=== PATIENT | female | born 1970 | race Caucasian/White ===

== ENCOUNTER 2021-02-08 17:38 | Emergency (ER) | payer OTHER ==
[~2021-02-08] VITALS: Ht 162.6 cm; Wt 54.4 kg
[2021-02-08 19:32] LABS: ABSOLUTE NEUTROPHILS 7.9 thou/uL (1.4-8.2); BASOPHILS 0.2 % (0.0-2.0); EOSINOPHILS 0.6 % (0.0-3.0); HEMATOCRIT 41.2 % (37.0-47.0); LYMPHOCYTES 12.9 % (24.0-44.0); MCH 30.3 pg (26.0-34.0); MCV 89.1 fL (80.0-100.0); MONOCYTES 8.4 % (1.0-8.0); PLATELET COUNT 207 thou/uL (150-400); POLYS 77.9 % (36.0-66.0); RBC 4.62 mil/uL (4.20-5.00); RDW 14.5 % (10.5-14.5); WBC 10.2 thou/uL (4.0-11.0)
[2021-02-08 19:59] LABS: CREATININE 0.8 mg/dL (0.6-1.0); POTASSIUM 3.6 mmol/L (3.5-5.1)
[2021-02-08] MEDS ORDERED: KEFLEX500 M1 PO ×2 (22:02→22:07)
[2021-02-08] MEDS ORDERED: BACTRIM DS TAB1 EACH PO ×2 (22:02→22:07)
[2021-02-08 23:23] VITALS: BP 118/72
--- NOTE | 2021-02-12 10:11 | O ---
[facility] [place] [address] [place] [address] OPERATIVE REPORT Name: LORETO DOMINGUEZ Room #: DEP Fabio#: [id number] Admission: 02/08/21 Attend Phys: Discharge: 02/08/21 Date of : 68 Report #: [id number] THIS REPORT FOR: cc: FAM - Family physician unknown FAM - Family physician unknown Lam Pacheco MD ~ DATE OF SERVICE: 02/08/2021 ER PROCEDURE NOTE PREPROCEDURE DIAGNOSIS: Right superficial volar thumb abscess. POSTPROCEDURE DIAGNOSIS: Right superficial volar thumb abscess. PROCEDURE: Incision and drainage, right thumb abscess. SURGEON: Lam Pacheco MD. ANESTHESIA: Digital nerve block performed by myself using 1% lidocaine. ESTIMATED BLOOD LOSS: Minimal. SPECIMENS: Cultures of the abscess were taken and sent. CONDITION POSTPROCEDURE: Stable. INDICATIONS FOR PROCEDURE: The patient is a 50-year-old female who has had increased swelling and development of abscess in her right thumb in flexion crease that has gotten progressively swollen and painful with erythema going up her arm. She did not show any signs of flexor tenosynovitis. She was not interested in being admitted to the hospital for IV antibiotics and surgical drainage and alternatively we offered local I and D in the Emergency Room. She was amenable to this plan. DESCRIPTION OF PROCEDURE: Risks, benefits, alternatives, complications were discussed in detail with the patient including but not limited to risk of the nerve block, risks of continued infection, progression of infection to involve more than ____. An informed consent was obtained from the patient. The right thumb was identified. Timeout was performed. The right thumb was then numbed using a digital nerve block using approximately 7 mL of 1% lidocaine injected into the base of the thumb. After this, the thumb was prepped and draped in sterile fashion. A #15 blade was used to open the abscess in interval oblique fashion. Upon opening of the abscess, there was a 2-3 mL of purulent drainage that was expressed. Cultures of this were taken. This was irrigated with normal saline and dressed with 4 x 4 and Rajiv wrap. The patient tolerated this [facility] [address] [place] [address] OPERATIVE REPORT Name: LORETO DOMINGUEZ JACVishal Room #: DEP Fabio#: [id number] Admission: 02/08/21 Attend Phys: Discharge: 02/08/21 Date of : 68 Report #: [id number] procedure well and will be discharged home on oral antibiotics. It has been instructed to her to perform soapy water washes 3 times a day and secondary healing. <ELECTRONICALLY SIGNED> By: Lam Pacheco MD 02/12/21 [id number] Lam Pacheco MD /nt
== END 2021-02-08 23:24 | disposition left against medical advice (07) ==
LOC: ER 17:38 → EROBS 20:26
PROVIDERS: Emergency Medicine
DX: M65.841 Other synovitis and tenosynovitis, right hand (principal); Z20.822 Contact with and (suspected) exposure to COVID-19; I89.1 Lymphangitis; E11.9 Type 2 diabetes mellitus without complications; F17.210 Nicotine dependence, cigarettes, uncomplicated